=== PATIENT | female | born 1995 | race Caucasian/White ===

== ENCOUNTER 2018-03-05 18:06 | Emergency (ER) | END 2018-03-05 22:18 | disposition home or self-care (01) ==

== ENCOUNTER 2018-03-09 13:00 | Emergency (ER) | END 2018-03-09 15:35 | disposition home or self-care (01) ==

== ENCOUNTER 2018-09-18 21:22 | Emergency (ER) | END 2018-09-19 03:42 | disposition home or self-care (01) ==